=== PATIENT | female | born 1960 | race Caucasian/White ===

== ENCOUNTER → 2016-05-10 | Outpatient (CLI) | payer OTHER ==
[~2016-05-10] MED LIST: IBUP-1277 PO
[2016-05-10 13:01] LABS: BASO % 0.8 %; BASO ABS # 0.05 K/uL (0-0.2); COMPLETE YES; EOS % 10.4 %; HEMATOCRIT 38.6 % (37-47); IG% 0.3 %; LYMPH % 30.7 %; LYMPH ABS # 1.95 K/uL (1.2-3.4); MEAN CELL VOLUME 96.3 fL (80-100); MEAN CORPUSCULAR HEMOGLOBIN 33.9 pg (25-34); MEAN CORPUSCULAR HGB CONC 35.2 g/dl (32-36); MEAN PLATELET VOLUME 9.6 fL (7.4-10.4); MONO % 7.7 %; NEUT % 50.1 %; PLATELET COUNT 317 K/uL (130-400); RED BLOOD COUNT 4.01 M/uL (4.2-5.4); WHITE BLOOD COUNT 6.35 K/uL (4.8-10.8)
[2016-05-10 13:15] LABS: ALT/SGPT 29 U/L (12-78); AST/SGOT 19 U/L (15-37); BLOOD UREA NITROGEN 10 mg/dl (7-18); BUN/CREATININE RATIO 16.6 (10-20); CARBON DIOXIDE 26 mmol/L (21-32); CHLORIDE 97 mmol/L (98-107); CREATININE 0.61 mg/dl (0.60-1.20); GLUCOSE 85 mg/dl (70-99); POTASSIUM 4.7 mmol/L (3.5-5.1); SODIUM 132 mmol/L (136-145)
[2016-05-10 13:25] LABS: ALB/GLOB RATIO 1.3 (0.9-2); ALKALINE PHOSPHATASE 62 U/L (45-117); THYROID STIMULATING HORMONE 0.684 uIu/ml (0.300-4.500)
== END | disposition home or self-care (01) ==
LOC: C.LABBC 11:25
PROVIDERS: ATTEND Internal Medicine
DX: R53.83 Other fatigue (principal)

== ENCOUNTER → 2016-11-12 | Outpatient (CLI) | payer OTHER ==
--- NOTE | 2016-11-12 12:27 | DIAGNOSTIC IMAGING REPORT ---
RIGHT MIDDLE FINGER 3 VIEWS HISTORY: Right third finger injury. COMPARISON: None. FINDINGS: There is no fracture or dislocation. Mild soft tissue swelling at the PIP joint. No radiopaque foreign bodies. IMPRESSION: No fractures. Electronically signed by: Terry Layton M.D. 11/12/2016 12:26 PM Dictated Date/Time: 11/12/2016 12:25 PM
== END | disposition home or self-care (01) ==
LOC: C.RAD1850 12:17
PROVIDERS: ATTEND Nurse Practitioner Adult Health
DX: S69.81XA Other specified injuries of right wrist, hand and finger(s), initial encounter (principal); M79.89 Other specified soft tissue disorders; X58.XXXA Exposure to other specified factors, initial encounter

== ENCOUNTER → 2017-04-21 | Outpatient (CLI) | payer OTHER ==
--- NOTE | 2017-04-21 14:39 | MAMMOGRAPHY REPORT ---
BILATERAL DIGITAL SCREENING MAMMOGRAM TOMOSYNTHESIS WITH CAD: 04/21/2017 CLINICAL HISTORY: Routine screening. Patient has no complaints. TECHNIQUE: Breast tomosynthesis in addition to standard 2D mammography was performed. Current study was also evaluated with a Computer Aided Detection (CAD) system. COMPARISON: Comparison is made to exams dated: 02/12/2016 mammogram, 06/15/2014 mammogram, 12/02/2012 mammogram, 11/05/2011 mammogram, and 03/25/2011 mammogram - [facility]. BREAST COMPOSITION: There are scattered areas of fibroglandular density in both breasts. FINDINGS: No suspicious masses, calcifications, or areas of architectural distortion are noted in ei ther breast. There has been no significant interval change compared to prior exams. IMPRESSION: ACR BI-RADS CATEGORY 1: NEGATIVE There is no mammographic evidence of malignancy. A 1 year screening mammogram is recommended. The pa tient will receive written notification of the results. Approximately 10% of breast cancers are not detected with mammography. A negative mammographic report should not delay biopsy if a clinically suggestive mass is present. Claudia Olson M.D. /:04/21/2017 12:07:12 Admitting Representative: Christa HARDEN)(Jac), [facility] letter sent: Normal 1/2 BI-RADS Code: ACR BI-RADS Category 1: Negative
== END | disposition home or self-care (01) ==
LOC: C.MAMM 11:21
PROVIDERS: ATTEND Internal Medicine
DX: Z12.31 Encounter for screening mammogram for malignant neoplasm of breast (principal)

== ENCOUNTER → 2017-04-24 | Outpatient (CLI) | payer OTHER ==
--- NOTE | 2017-04-24 12:26 | DIAGNOSTIC IMAGING REPORT ---
L-SPINE MIN 4 VIEWS ROUTINE CLINICAL HISTORY: M51.26 Bulging lumbar [id number] COMPARISON STUDY: August 2007 FINDINGS: There is a transitional vertebra with partial sacralization of the L5 vertebra. No acute fractures or subluxations are visualized. There are progressive degenerative changes at the L4-5 level. IMPRESSION: 1. Progressive degenerative change 2. Transitional vertebra 3. No acute fractures Electronically signed by: Guanakito Brown M.D. 04/24/2017 12:24 PM Dictated Date/Time: 04/24/2017 12:23 PM
[2017-04-24 13:29] LABS: BASO % 0.7 %; BASO ABS # 0.04 K/uL (0-0.2); EOS % 9.4 %; EOS ABS # 0.51 K/uL (0-0.5); HEMOGLOBIN 13.1 g/dL (12.0-16.0); IG# 0.03 K/uL (0.00-0.02); LYMPH % 33.8 %; LYMPH ABS # 1.84 K/uL (1.2-3.4); MEAN CELL VOLUME 98.4 fL (80-100); MEAN CORPUSCULAR HEMOGLOBIN 33.9 pg (25-34); MEAN CORPUSCULAR HGB CONC 34.5 g/dl (32-36); MEAN PLATELET VOLUME 9.5 fL (7.4-10.4); MONO % 10.3 %; MONO ABS # 0.56 K/uL (0.11-0.59); NEUT % 45.2 %; NEUT ABS # 2.46 K/uL (1.4-6.5); PLATELET COUNT 291 K/uL (130-400); RED CELL DISTRIBUTION WIDTH CV 12.3 % (11.5-14.5); RED CELL DISTRIBUTION WIDTH SD 43.7 fL (36.4-46.3); WHITE BLOOD COUNT 5.44 K/uL (4.8-10.8)
[2017-04-24 13:49] LABS: ALBUMIN 3.7 gm/dl (3.4-5.0); ALT/SGPT 31 U/L (12-78); BLOOD UREA NITROGEN 11 mg/dl (7-18); CALCIUM 8.8 mg/dl (8.5-10.1); CARBON DIOXIDE 26 mmol/L (21-32); CREATININE 0.55 mg/dl (0.60-1.20); GLUCOSE 86 mg/dl (70-99); SODIUM 132 mmol/L (136-145)
[2017-04-24 14:00] LABS: ALKALINE PHOSPHATASE 52 U/L (45-117); AST/SGOT 19 U/L (15-37)
== END | disposition home or self-care (01) ==
LOC: C.RAD1850 11:54
PROVIDERS: ATTEND Internal Medicine
DX: M51.26 Other intervertebral disc displacement, lumbar region (principal); R53.83 Other fatigue

== ENCOUNTER → 2017-05-05 | Outpatient (CLI) | payer OTHER ==
--- NOTE | 2017-05-05 18:47 | DIAGNOSTIC IMAGING REPORT ---
LUMBAR SPINE W/O CONTRAST CLINICAL HISTORY: 57 years-old Female with BACK PAIN,RADICULOPATHY. Degenerative disc disease with chronic low back pain. No radicular symptoms COMPARISON: Lumbar spine radiographs to 04/24/2017 and 09/14/2007 TECHNIQUE: Multiplanar, multi sequence MRI of the lumbar spine was performed without intravenous contrast. FINDINGS: Transitional lumbosacral anatomy is noted with sacralization of the left L5 transverse process. On comparison radiographs, the ribs at T12 appear hypoplastic. No acute fracture or subluxation identified. Modic type I endplate degenerative changes are noted at L4-L5. Conus medullaris terminates at the L1 level. Signal within the imaged thoracic spinal cord appears normal. The cauda equina are unremarkable. No aortic aneurysm or pathologic adenopathy. The imaged intra-abdominal, intrapelvic and paraspinal structures demonstrate no acute abnormality. T12-L1: No central canal or neural foraminal stenosis. L1-L2: No central canal or neural foraminal stenosis.Mild facet arthrosis and ligamentum flavum thickening with trace facet effusions. L2-L3: Mild disc desiccation and intervertebral disc space narrowing with ligamentum flavum thickening and moderate facet arthrosis. There is a small posterior annular disc bulge which flattens the ventral thecal sac. No significant central canal or left foraminal narrowing. There is mild right foraminal stenosis. L3-L4: Small circumferential annular disc bulge favoring the right foramen and right far lateral extraforaminal region flattens the ventral thecal sac without significant central canal or left foraminal narrowing. There is mild right foraminal stenosis. Moderate facet arthropathy. L4-L5: Moderate intervertebral disc space narrowing with spondylitic spurring and circumferential annular disc bulge with small annular fissure. Disc osteophyte complex of the left foramen and left far lateral region is noted resulting in mild left foraminal stenosis. There is abutment of the exiting left L4 nerve root in the far lateral extraforaminal distribution as seen on image 23 series 6. Mild right foraminal narrowing. Central canal is patent. L5-S1: No significant central canal or foraminal narrowing. IMPRESSION: 1. At L4-L5, there is posterior spondylitic spurring with circumferential annular disc bulge and small annular fissure with disc osteophyte complex of the left extraforaminal region causing mild left foraminal stenosis and resulting in mild mass effect upon the extraforaminal exiting left L4 nerve root. 2. No significant central canal narrowing. 3. Mild right foraminal narrowing is seen at the L2-L3 and L3-L4 levels as above. 4. Transitional lumbosacral anatomy. 5. Modic type I endplate degenerative changes at L4-L5. The above report was generated using voice recognition software. It may contain grammatical, syntax or spelling errors. Electronically signed by: Haresh Jung M.D. 05/05/2017 6:46 PM Dictated Date/Time: 05/05/2017 3:46 PM
== END | disposition home or self-care (01) ==
LOC: C.MRIBC 14:41
PROVIDERS: ATTEND Internal Medicine
DX: M54.9 Dorsalgia, unspecified (principal); M51.26 Other intervertebral disc displacement, lumbar region; M54.16 Radiculopathy, lumbar region; R93.7 Abnormal findings on diagnostic imaging of other parts of musculoskeletal system